=== PATIENT | female | born 1995 | race Caucasian/White ===

== ENCOUNTER 2016-07-17 13:38 | Emergency (ER) | payer OTHER ==
[2016-07-17 14:57] VITALS: BP 132/81
--- NOTE | 2016-07-17 15:04 | UC ---
UC General HPI - HPI Summary HPI Summary: Episodes of diarrhea since return from [facility] 7 days ago. Initially up to 8 loose stools per day, in the past 234 hours has had 3 unformed watery stools, no blood or mucous. Feels more crampy since using imodium, with more bloating. NO fever, + cramping but no focal abdominal pain, no nausea or vomiting, no heartburn. Has been eating typical diet eg burger last night, bagel and eggs today. Normal voiding, not dehydrated. - History of Current Complaint Chief Complaint: UCAbdominalPain Stated Complaint: DIARRHEA (RECENT TRAVEL TO ..) Time Seen by Provider: 07/17/16 15:02 Hx Obtained From: Patient Onset/Duration: Sudden Onset, Lasting Days - about 10, some initial loose stools , followed by watery diarrhea. Timing: Intermittent Episodes Lasting: - minutes. Onset Severity: Moderate Current Severity: Mild Associated Signs & Symptoms: Positive: Abdominal Pain - cramping, Diarrhea - Allergy/Home Medications Allergies/Adverse Reactions: Allergies Allergy/AdvReac Type Severity Reaction Status Date / Time No Known Allergies Allergy Verified 07/17/16 14:57 Home Medications: Home Medications Loperamide CAP* [Imodium CAP*] 2 mg PO Q4H PRN 07/17/16 [History Confirmed 07/17] Clare 07/17/16 [History] PMH/Surg Hx/FS Hx/Imm Hx Previously Healthy: Yes - Surgical History Surgical History: None - Family History Known Family History: Positive: Cardiac Disease - both maternal grandparents, Other - no history of Crohn's or ulcerative colitis. - Social History Occupation: Employed Full-time Alcohol Use: Occasionally Substance Use Type: None Smoking Status (MU): Never Smoked Tobacco Review of Systems Constitutional: Other - decreased appetite. Skin: Negative Eyes: Negative ENT: Negative Respiratory: Negative Cardiovascular: Negative Gastrointestinal: Abdominal Pain - cramping., Diarrhea Genitourinary: Negative Motor: Negative Neurovascular: Negative Musculoskeletal: Other: - no joint pains or myalgias Neurological: Negative Psychological: Negative All Other Systems Reviewed And Are Negative: Yes Physical Exam Triage Information Reviewed: Yes Appearance: Well-Appearing, No Pain Distress Vital Signs: Initial Vital Signs Temp 98.3 F 07/17/16 14:53 Pulse 75 07/17/16 14:53 Resp 16 07/17/16 14:53 BP 132/81 07/17/16 14:53 Pulse Ox 100 07/17/16 14:53 Vital Signs Reviewed: Yes Eyes: Positive: Conjunctiva Clear ENT: Positive: Pharynx normal Neck: Positive: Supple, Nontender Respiratory: Positive: Lungs clear, Normal breath sounds Cardiovascular: Positive: RRR, No Murmur, Pulses Normal Abdomen Description: Positive: Nontender, Soft Bowel Sounds: Positive: Present Musculoskeletal Exam: Normal Neurological Exam: Normal Psychological Exam: Normal Skin Exam: Normal Course/Dx - Course Course Of Treatment: ALEJANDRO diet, hydration, probiotics - Differential Dx - Multi-Symptom Differential Diagnoses: Other - Traveller's diarrhea, gastroenteritis. Provider Diagnoses: traveller's diarrhea. Discharge - Discharge Plan Condition: Stable Disposition: HOME Patient Education Materials: Traveler's Diarrhea (ED), Nutrition Tips for Relief of Diarrhea (ED) Additional Instructions: As discussed, changing diet will likely help--more soups, cooked vegetables, avoidance of fatty foods. You can get probiotics from yogurt or kefir, kombucha or miso. You could also purchase supplements but these tend to be costly and foods can work just as well. Avoid imodium for now.
== END 2016-07-17 15:38 | disposition home or self-care (01) ==
LOC: UCCORT 13:38
DX: A08.8 Other specified intestinal infections (principal)
CPT/HCPCS: 99201; G0463